=== PATIENT | female | born 1965 | race African-American/Black ===

== ENCOUNTER 2017-01-30 21:39 | Emergency (ER) | payer OTHER ==
[2017-01-30 21:49] VITALS: BP 125/66; PULSE 85; TEMP 98.8; BMI 37.8
[2017-01-30] MEDS ORDERED: traMADol HCL 50 MG TABLET PO ONE (23:45)
--- NOTE | 2017-01-30 23:45 | PDOC ---
History of Present Illness - General History Source: Patient <Bakari Avalos - Last Filed: 01/30/17 23:45> - General History Source: Patient Exam Limitations: No Limitations - History of Present Illness Initial Comments: 01/30/17 23:48 The patient is a 51 year old female with significant past medical history of hypertension and arthritis who presents to the ED with chronic arthritic pain to both knees and back. She denies any trauma to the area or recent falls. The patient denies fever, chills, cough, SOB, chest pain, and palpitations. The patient denies abdominal pain, nausea, vomiting, and diarrhea. The patient denies dysuria, hematuria, urgency, and frequency. Allergies: NKDA Social History: Polysubstance abuse Past Surgical History: None reported PCP: None reported <Charleen Lawson - Last Filed: 01/30/17 23:49> - General Chief Complaint: Pain Stated Complaint: PAIN Time Seen by Provider: 01/30/17 23:45 Past History - Past Medical History HTN: Yes - Immunization History Immunization Up to Date: Yes - Psycho/Social/Smoking Cessation Hx Suicidal Ideation: No Smoking History: Current some day smoker Information on smoking cessation initiated: No Hx Alcohol Use: No Drug/Substance Use Hx: No Substance Use Type: None <Janet Avalosan - Last Filed: 01/30/17 23:45> <Charleen Lawson - Last Filed: 01/30/17 23:49> - Past Medical History Allergies/Adverse Reactions: Allergies Allergy/AdvReac Type Severity Reaction Status Date / Time No Known Allergies Allergy Verified 01/30/17 21:49 Review of Systems - Review of Systems Able to Perform ROS?: Yes Comments:: 01/30/17 23:48 CONSTITUTIONAL: Absent: fever, no chills, no fatigue EYES: Absent: visual changes ENT: Absent: ear pain, no sore throat CARDIOVASCULAR: Absent: chest pain, no palpitations RESPIRATORY: Absent: cough, no SOB GI: Absent: abdominal pain, no nausea, no vomiting, no constipation, no diarrhea GENITOURINARY: Absent: dysuria, no frequency, no hematuria MUSCULOSKELETAL: +bilateral knee pain and back pain SKIN: Absent: rash NEURO: Absent: headache <Charleen Lawson - Last Filed: 01/30/17 23:49> *Physical Exam - Vital Signs Last Vital Signs Temp Pulse Resp BP Pulse Ox 98.8 F 85 20 125/66 99 01/30/17 21:47 01/30/17 21:47 01/30/17 21:47 01/30/17 21:47 01/30/17 21:47 <Bakari Avalos - Last Filed: 01/30/17 23:45> - Vital Signs Last Vital Signs Temp Pulse Resp BP Pulse Ox 98.8 F 85 20 125/66 99 01/30/17 21:47 01/30/17 21:47 01/30/17 21:47 01/30/17 21:47 01/30/17 21:47 - Physical Exam Comments: 01/30/17 23:48 GENERAL: Well-appearing, well-nourished. No apparent distress. HEENT: Normocephalic, atraumatic. PERRL, EOM intact. CARDIOVASCULAR: Normal S1, S2. Regular rate and rhythm. PULMONARY: Clear to auscultation bilaterally. ABDOMEN: Soft, non-distended, non-tender. EXTREMITIES: Normal ROM in all four extremities. No tenderness or deformities. SKIN: Warm, dry. No rash NEUROLOGICAL: Pt is ambulating well. No focal neurological deficits. <Charleen Lawson - Last Filed: 01/30/17 23:49> Medical Decision Making - Medical Decision Making 01/30/17 23:46 Dr. Avalos: The scribe's documentation has been prepared under my direction and personally reviewed by me in its entirery. I confirm that the note above accurately reflects all work, treatment, procedures, and medical decision making performed by me. <Bakari Avalos - Last Filed: 01/30/17 23:45> *DC/Admit/Observation/Transfer - Discharge Dispostion Admit: No <Bakari Avalos - Last Filed: 01/30/17 23:45> - Attestations Scribe Attestion: 01/30/17 23:49 Documentation prepared by Charleen Lawson, acting as medical instrument cable fabricator for Bakari Avalos MD <Charleen Lawson - Last Filed: 01/30/17 23:49> Diagnosis at time of Disposition: Knee pain, chronic Qualifiers: Laterality: bilateral Qualified Code(s): M25.561 - Pain in right knee - Discharge Dispostion Disposition: HOME - Patient Instructions Printed Discharge Instructions: DI for Osteoarthritis
[2017-01-31] MEDS ORDERED: traMADol HCL 50 MG TABLET ONE (00:17)
== END 2017-01-31 00:19 | disposition home or self-care (01) ==
LOC: JER 21:39 → JERFT 21:39 → JER 01-31 00:19
DX: M13.862 Other specified arthritis, left knee (principal); M13.861 Other specified arthritis, right knee; I10 Essential (primary) hypertension; F17.210 Nicotine dependence, cigarettes, uncomplicated
CPT/HCPCS: 99281-25

== ENCOUNTER 2017-08-12 00:14 | Inpatient (IN) | payer OTHER ==
--- NOTE | 2017-08-12 00:41 | HP ---
CIWA Score - CIWA Score Nausea/Vomitin Muscle Tremors: 1-None Visible, but [place] Anxiety: 4-Mod. Anxious/Guarded Agitation: 4-Moderately Restless Paroxysmal Sweats: 1-Minimal Palms Moist Orientation: 0-Oriented Tacttile Disturbances: 3-Moderate Itch/Numb/Burn Auditory Disturbances: 0-None Visual Disturbances: 0-None Headache: 3-Moderate CIWA-Ar Total Score: 19 Admission ROS BHS - HPI Chief Complaint: C/O WITHDRAWAL SX'S FROM ALCOHOLISM. SEEKING DETOX TXMENT. Allergies/Adverse Reactions: Allergies Allergy/AdvReac Type Severity Reaction Status Date / Time No Known Allergies Allergy Verified 08/12/17 00:30 History of Present Illness: 52 Y.O. FEMALE W/ EXTENSIVE HX/O OF ALCOHOLISM ADMITTED TO DETOX. CLIENT DENIES RECENT DETOX TXMENT. SELF REFERRED. REPORTS LONGEST CLEAN TIME 18 YEARS. RELAPSING 2006. Exam Limitations: No Limitations - Ebola screening Have you traveled outside of the country in the last 21 days: No Have you had contact with anyone from an Ebola affected area: No Have you been sick,other than usual withdrawal symptoms: No Do you have a fever: No - Review of Systems Constitutional: Chills, Loss of Appetite, Malaise, Night Sweats, Changes in sleep EENT: reports: Dental Problems (MISSING TEETH) Respiratory: reports: No Symptoms reported Cardiac: reports: No Symptoms Reported GI: reports: Poor Appetite, Poor Fluid Intake Musculoskeletal: reports: No Symptoms Reported Integumentary: reports: No Symptoms Reported Neuro: reports: No Symptoms reported Endocrine: reports: No Symptoms Reported Hematology: reports: No Symptoms Reported Psychiatric: reports: Anxious, Depressed Other Systems: Reviewed and Negative Patient History - Patient Medical History Hx Anemia: No Hx Asthma: Yes (ALBUTEROL INH) Hx Chronic Obstructive Pulmonary Disease (COPD): No Hx Cancer: No Hx Cardiac Disorders: No Hx Congestive Heart Failure: No Hx Hypertension: Yes (NON COMPLIANT WITH NORVASC) Hx Hypercholesterolemia: No Hx Pacemaker: No HX Cerebrovascular Accident: No Hx Seizures: No Hx Dementia: No Hx Diabetes: No Hx Gastrointestinal Disorders: No Hx Liver Disease: No Hx Genitourinary Disorders: No Hx Sexually Transmitted Disorders: No Hx Renal Disease (ESRD): No Hx Thyroid Disease: No Hx Human Immunodeficiency Virus (HIV): No Hx Hepatitis C: No Hx Depression: Yes (ZOLOFT) Hx Suicide Attempt: No Hx Bipolar Disorder: No Hx Schizophrenia: No Other Medical History: DENIES - Patient Surgical History Past Surgical History: Yes Other Surgical History: BUNION REMOVAL BILAT FEET/ ECTOPIC Anesthesia Reaction: No - PPD History Previous Implant?: Yes Documented Results: Negative w/o proof Implanted On Prior [facility] Admission?: No PPD to be Administered?: Yes - Reproductive History Patient is a Female of Child Bearing Age (11 -55 yrs old): Yes Last Menstrual Period: 11/05/14 [place] : [place] [facility] [place] Smoking Cessation Smoking history: Current every day smoker Have you smoked in the past 12 months: No Aproximately how many cigarettes per day: 10 Cigars Per Day: 0 Hx Chewing Tobacco Use: No Initiated information on smoking cessation: Yes 'Breaking Loose' booklet given: 08/12/17 - Substance & Tx. History Hx Alcohol Use: Yes Hx Substance Use: Yes Substance Use Type: Alcohol, Cocaine, Prescribed (METHADONE), Tranquilizers (PCP ) Hx Substance Use Treatment: Yes ([facility]) - Substances Abused BEER/VODKA Route: Oral Frequency: Daily Amount used: 6-22OZ CAN/4 NIPS Age of first use: 10 Date of Last Use: 08/11/17 COCAINE Route: Smoking Frequency: 3-6 times per week Amount used: $40 Age of first use: 20 Date of Last Use: 08/11/17 PCP Route: Smoking Frequency: 1-3 times last 30 days Amount used: 1-2 JOINTS Age of first use: 30 Date of Last Use: 08/11/17 Family Disease History - Family Disease History Family Disease History: CA: Mother (BREAST), Other: Sister (SEIZURES) Admission Physical Exam [facility] - Physical General Appearance: Yes: Disheveled, Mild Distress, Alcohol on Breath, Other ( MALODUROUS) HEENTM: Yes: EOMI, Normocephalic, ALEAH, Pharynx Normal, Other (MISSING TEETH) Respiratory: Yes: Chest Non-Tender, Lungs Clear, Normal Breath Sounds, No Respiratory Distress, No Accessory Muscle Use Neck: Yes: No masses,lesions,Nodules, Supple, Trachea in good position Breast: Yes: Breast Exam Deferred Cardiology: Yes: Regular Rhythm, Regular Rate, S1, S2 Abdominal: Yes: Normal Bowel Sounds, Non Tender, Soft Genitourinary: Yes: Within Normal Limits Back: Yes: Within Normal Limits Musculoskeletal: Yes: Joint Stiffness (OA) Extremities: Yes: Non-Tender, Tremors Neurological: Yes: Fully Oriented, Alert, Motor Strength 5/5 Integumentary: Yes: Dry, Warm, Other (SOILED) Lymphatic: Yes: Within Normal Limits - Diagnostic (1) Osteoarthritis Current Visit: Yes Status: Acute (2) Methadone maintenance therapy patient Current Visit: Yes Status: Chronic (3) Alcohol dependence with uncomplicated withdrawal Current Visit: Yes Status: Chronic (4) Cocaine dependence, uncomplicated Current Visit: Yes Status: Chronic (5) PCP (phencyclidine) abuse Current Visit: Yes Status: Chronic (6) Asthma Current Visit: Yes Status: Chronic Qualifiers: Asthma severity: mild Asthma persistence: intermittent Asthma complication type: uncomplicated Qualified Code(s): J45.20 - Mild intermittent asthma, uncomplicated; J45.20 - Mild intermittent asthma, uncomplicated; J45.20 - Mild intermittent asthma, uncomplicated (7) HTN (hypertension) Current Visit: Yes Status: Chronic Qualifiers: Hypertension type: essential hypertension Qualified Code(s): I10 - Essential (primary) hypertension; I10 - Essential (primary) hypertension; I10 - Essential (primary) hypertension Cleared for Admission S - Detox or Rehab [facility] Level of Care: Medically Managed Detox Regimen/Protocol: Librium [facility] Breath Alcohol Content Breath Alcohol Content: 0 Vital Signs - Vital Signs Vital Signs Refused: No Temperature: 98.5 F Temperature Source: Oral Pulse Rate: 70 Respiratory Rate: 18 Blood Pressure: 132/80 BP Location: Left Arm Blood Pressure Position: Sitting - Height Height: 5 ft 5 in - Weight Weight: 81.647 kg Weight Measurement Method: Standing Scale Body Mass Index (BMI): 29.9 Urine Pregancy Test - Test Device Lot Number: [id number] Expiration Date: 03/04/19 - Control Horizontal Line in Upper Control Window?: Yes - Result Urine Test Results: Negative- NO Line Present Urine Drug Screen - Test Device Lot Number: [id number] Expiration Date: 05/04/19 - Control Is Test Valid: Yes - Results Drug Screen Negative: No Urine Drug Screen Results: ANGELY-Cocaine, PCP-Phencyclidine, MTD-Methadone
[2017-08-12 00:57] VITALS: BMI 29.9
[2017-08-12] MEDS ORDERED: IBUPROFEN 400 MG TABLET (FP) PO PRN (01:09)
[2017-08-12] MEDS ORDERED: MENTHOL/PHENOL 1 EACH UD MM PRN (01:09)
[2017-08-12] MEDS ORDERED: MAGNESIUM HYDROX 2400MG/30ML ORAL SUSPENSION 30 ML CUP PO PRN (01:09)
[2017-08-12] MEDS ORDERED: MAG HYDROX/AL HYDROX/SIMETH 30 ML UNIT-DOSE CUP PO PRN (01:09)
[2017-08-12] MEDS ORDERED: P-EPHED 60MG/TRIPROLIDI 2.5MG TABLET PO PRN (01:09)
[2017-08-12] MEDS ORDERED: MAGNESIUM CITRATE 300 ML BOTTLE PO PRN (01:09)
[2017-08-12] MEDS ORDERED: guaiFENesin/D-METHORPHAN HB 10 ML UNIT-DOSE CUPS PO PRN (01:09)
[2017-08-12] MEDS ORDERED: LOPERAMIDE HCL 2 MG CAPSULE PO PRN (01:09)
[2017-08-12] MEDS ORDERED: chlordiazePOXIDE HCL 25 MG CAPSULE PO PRN (01:09)
[2017-08-12] MEDS ORDERED: hydrOXYzine PAMOATE 50 MG CAPSULE (FP) PO PRN (01:09)
[2017-08-12] MEDS ORDERED: NICOTINE POLACRILEX 2 MG GUM BC PRN (01:09)
[2017-08-12] MEDS ORDERED: diphenhydrAMINE HCL 50 MG CAPSULE PO PRN (01:09)
[2017-08-12] MEDS: chlordiazePOXIDE HCL 25 MG CAPSULE PO SCH ×4 (08:36→22:16)
[2017-08-12] MEDS ORDERED: METHADONE HCL 10 MG TABLET PO SCH (09:30)
[2017-08-12 10:17] LABS: MCHC 31.4 g/dl (32.0-36.0); MEAN CELL VOLUME 98.8 fl (80-96); MEAN PLT VOLUME 9.8 fl (7.5-11.1); PLATELET COUNT 181 K/MM3 (134-434); WHITE BLOOD COUNT 9.3 K/mm3 (4.0-10.0)
[2017-08-12] MEDS: PRENATAL VITAMINS W/ FOLIC ACID TABLET (FP) PO SCH (10:35)
[2017-08-12] MEDS: NICOTINE 14 MG/24 HOURS TOPICAL PATCH TD SCH (10:37)
[2017-08-12] MEDS ORDERED: METHADONE HCL 40 MG DISPERSABLE TABLET ONE (10:38)
[2017-08-12] MEDS ORDERED: METHADONE HCL 10 MG TABLET ONE (10:38)
[2017-08-12] MEDS: METHADONE 80 MG, METHADONE 20 MG PO SCH (10:39)
[2017-08-12 10:41] LABS: ALBUMIN 3.4 g/dl (3.4-5.0); ALK PHOS 115 U/L (45-117); ANION GAP 8 (8-16); BILIRUBIN,TOTAL 0.4 mg/dL (0.2-1.0); CALCIUM 8.5 mg/dL (8.5-10.1); CO2 28 mmol/L (21-32); GLUCOSE,RANDOM 99 mg/dL (74-106); SGOT/AST 21 U/L (15-37); SGPT/ALT 26 U/L (12-78)
--- NOTE | 2017-08-12 11:54 | PN ---
S Progress Note Note: PATIENT IS ADMITTED FOR ALCOHOL DEPENDENCE,ON LIBRIUM REGIMEN,WITHDRAWAL SYMPTOM ,CONTINUE DETOX
--- NOTE | 2017-08-12 15:11 | PN ---
[facility] Progress Note Note: Patient approached at bedside. She was seating on her bed eating cereal. She was very drowsy, sedated and to my line of questioning responded:" Mister I'm very tired. I don't feel like doing that now"
--- NOTE | 2017-08-12 16:28 | EKG ---
Test Reason : Blood Pressure : / mmHG Vent. Rate : 065 BPM Atrial Rate : 065 BPM P-R Int : 160 ms QRS Dur : 100 ms QT Int : 442 ms P-R-T Axes : 043 048 055 degrees QTc Int : 459 ms NORMAL SINUS RHYTHM NORMAL ECG WHEN COMPARED WITH ECG OF 03-APR-2017 08:53, NO SIGNIFICANT CHANGE WAS FOUND Confirmed by DIDIER PIERSON MD ([id number]) on 08/12/2017 4:27:32 PM Referred By: Confirmed By:DIDIER PIERSON MD
[2017-08-12] MEDS: ACETAMINOPHEN 325 MG TABLET (FP) PO PRN ×2 (17:10→22:18)
[2017-08-12] MEDS: THIAMINE HCL 100 MG TABLET (FP) PO SCH (22:16)
[2017-08-13] MEDS ORDERED: METHADONE HCL 40 MG DISPERSABLE TABLET ONE (04:17)
[2017-08-13] MEDS ORDERED: METHADONE HCL 10 MG TABLET ONE (04:18)
[2017-08-13] MEDS: METHADONE 80 MG, METHADONE 20 MG PO SCH (05:45)
[2017-08-13] MEDS: chlordiazePOXIDE HCL 25 MG CAPSULE PO SCH ×4 (05:45→22:17)
[2017-08-13] MEDS ORDERED: PNEUMOC 13-VAL CONJ-DIP CRM/PF 0.5 ML DISP.SYRIN IM ONE (10:00)
[2017-08-13] MEDS ORDERED: FLU VACCINE QUAD 60 MCG/0.5 ML (MDV 17-18) IM ONE (10:00)
[2017-08-13] MEDS: PRENATAL VITAMINS W/ FOLIC ACID TABLET (FP) PO SCH (10:18)
[2017-08-13] MEDS: NICOTINE 14 MG/24 HOURS TOPICAL PATCH TD SCH (10:19)
--- NOTE | 2017-08-13 11:16 | PN ---
S CIWA - CIWA Score Nausea/Vomitin Muscle Tremors: 3 Anxiety: 3 Agitation: 2 Paroxysmal Sweats: 1-Minimal Palms Moist Orientation: 0-Oriented Tacttile Disturbances: 1-Very Mild Itch/Numbness Auditory Disturbances: 1-Very Mild Visual Disturbances: 0-None Headache: 2-Mild CIWA-Ar Total Score: 16 BHS Progress Note (SOAP) Subjective: ALERT,IRRITABLE,ANXIOUS,INTERRUPTED SLEEP,TREMOR Objective: 08/13/17 11:13 Vital Signs Temperature 98.2 F 08/13/17 09:43 Pulse Rate 68 08/13/17 09:43 Respiratory Rate 18 08/13/17 09:43 Blood Pressure 138/91 08/13/17 09:43 O2 Sat by Pulse Oximetry (%) EKG NSR,NORMAL ECG Laboratory Last Values WBC 9.3 K/mm3 (4.0-10.0) 08/12/17 07:40 RBC 3.99 M/mm3 (3.60-5.2) 08/12/17 07:40 Hgb 12.4 GM/dL (10.7-15.3) 08/12/17 07:40 Hct 39.4 % (32.4-45.2) 08/12/17 07:40 MCV 98.8 fl (80-96) H 08/12/17 07:40 MCH 31.0 pg (25.7-33.7) 08/12/17 07:40 MCHC 31.4 g/dl (32.0-36.0) L 08/12/17 07:40 RDW 14.0 % (11.6-15.6) 08/12/17 07:40 Plt Count 181 K/MM3 (134-434) D 08/12/17 07:40 MPV 9.8 fl (7.5-11.1) 08/12/17 07:40 Sodium 144 mmol/L (136-145) 08/12/17 07:40 Potassium 3.8 mmol/L (3.5-5.1) 08/12/17 07:40 Chloride 108 mmol/L (98-107) H 08/12/17 07:40 Carbon Dioxide 28 mmol/L (21-32) 08/12/17 07:40 Anion Gap 8 (8-16) 08/12/17 07:40 BUN 19 mg/dL (7-18) H D 08/12/17 07:40 Creatinine 1.0 mg/dL (0.55-1.02) D 08/12/17 07:40 Creat Clearance w eGFR 58.69 (>60) 08/12/17 07:40 Random Glucose 99 mg/dL (74-106) 08/12/17 07:40 Calcium 8.5 mg/dL (8.5-10.1) 08/12/17 07:40 Total Bilirubin 0.4 mg/dL (0.2-1.0) D 08/12/17 07:40 AST 21 U/L (15-37) D 08/12/17 07:40 ALT 26 U/L (12-78) D 08/12/17 07:40 Alkaline Phosphatase 115 U/L (45-117) D 08/12/17 07:40 Total Protein 7.0 g/dl (6.4-8.2) 08/12/17 07:40 Albumin 3.4 g/dl (3.4-5.0) D 08/12/17 07:40 RPR Titer Nonreactive (NONREACTIVE) 08/12/17 07:40 Assessment: 08/13/17 11:15 WITHDRAWAL SYMPTOM Plan: CONTINUE DETOX,ENCOURAGE ORAL FLUID
[2017-08-13] MEDS ORDERED: PNEUMOCOCCAL 23 VACCINE 0.5 ML VIAL IM ONE (12:00)
--- NOTE | 2017-08-13 13:14 | CONSULT ---
[facility] Psychiatric Consult - Data Date of interview: 08/13/17 Admission source: [facility] Identifying data: First admission to [facility] for this 52 y/o AA female seeking detox treatment on for heroin,cocaine (crack),alcohol and phencyclidine dependence.Patient is single,a mother of three,homeless, unemployed and supported on SSI benefits. Substance Abuse History: Discussed in this encounter.Confirmed by patient. Smoking Cessation. Smoking history: Current every day smoker. Have you smoked in the past 12 months: No. Aproximately how many cigarettes per day: 10. Cigars Per Day: 0. Hx Chewing Tobacco Use: No. Initiated information on smoking cessation: Yes. 'Breaking Loose' booklet given: 08/12/17. - Substance & Tx. History. Hx Alcohol Use: Yes. Hx Substance Use: Yes. Substance Use Type : Alcohol, Cocaine, Prescribed (METHADONE), Tranquilizers (PCP). Hx Substance Use Treatment: Yes ([facility]). - Substances Abused. BEER/VODKA. Route: Oral. Frequency: Daily. Amount used: 6-22OZ CAN/4 NIPS. Age of first use: 10. Date of Last Use: 08/11/17. COCAINE. Route: Smoking. Frequency: 3 -6 times per week. Amount used: $40. Age of first use: 20. Date of Last Use: 08/11/17. PCP. Route: Smoking. Frequency: 1-3 times last 30 days. Amount used: 1-2 JOINTS. Age of first use: 30. Date of Last Use: 08/11/17 Medical History: Bronchial asthma,hypertension,osteoarthritis (knees) and a history of surgeries (ectopic and bilateral excision of bunions). Psychiatric History: No reported history of psychiatric hospitalizations.Patient endorses MDD and Anxiety Disorder.Medications reported as buspar and zoloft (doses not recalled).Ms Chávez gets outpatient psychiatric services at the [facility] in [facility].She repports chronic non- adherence to OPD care.Denies history of suicide attempts. Physical/Sexual Abuse/Trauma History: No reported history of abuse. Additional Comment: Urine Drug Screen Results: ANGELY-Cocaine, PCP-Phencyclidine, MTD-Methadone.Noted. Mental Status Exam - Mental Status Exam Alert and Oriented to: Time, Place, Person Cognitive Function: Good Patient Appearance: Well Groomed Mood: Nervous, Withdrawn, Anxious Affect: Mood Congruent Patient Behavior: Fatigued, Appropriate, Cooperative Speech Pattern: Clear Voice Loudness: Normal Thought Process: Goal Oriented Thought Disorder: Not Present Hallucinations: Denies Suicidal Ideation: Denies Homicidal Ideation: Denies Insight/Judgement: Poor Sleep: Fair Appetite: Good Muscle strength/Tone: Normal Gait/Station: Normal Psychiatric Findings - Problem List ([place] 1, 2,3) (1) Alcohol dependence with uncomplicated withdrawal Current Visit: Yes Status: Acute (2) Cocaine dependence, uncomplicated Current Visit: Yes Status: Acute (3) Phencyclidine dependence Current Visit: Yes Status: Acute (4) Opioid dependence on agonist therapy Current Visit: Yes Status: Acute (5) Nicotine dependence Current Visit: Yes Status: Acute (6) Substance induced mood disorder Current Visit: Yes Status: Acute (7) Osteoarthritis Current Visit: Yes Status: Chronic (8) Asthma Current Visit: Yes Status: Chronic Qualifiers: Asthma severity: mild Asthma persistence: intermittent Asthma complication type: uncomplicated Qualified Code(s): J45.20 - Mild intermittent asthma, uncomplicated; J45.20 - Mild intermittent asthma, uncomplicated; J45.20 - Mild intermittent asthma, uncomplicated (9) HTN (hypertension) Current Visit: Yes Status: Chronic Qualifiers: Hypertension type: essential hypertension Qualified Code(s): I10 - Essential (primary) hypertension; I10 - Essential (primary) hypertension; I10 - Essential (primary) hypertension (10) Knee pain, chronic Current Visit: Yes Status: Chronic Qualifiers: Laterality: bilateral Qualified Code(s): M25.561 - Pain in right knee; M25.561 - Pain in right knee; G89.29 - Other chronic pain; G89.29 - Other chronic pain - Initial Treatment Plan Initial Treatment Plan: Psaychoeducation.Detoxification.Medications :
[2017-08-13] MEDS: busPIRone HCL 5 MG TABLET PO SCH (22:15)
[2017-08-13] MEDS: THIAMINE HCL 100 MG TABLET (FP) PO SCH (22:15)
[2017-08-14] MEDS ORDERED: METHADONE HCL 40 MG DISPERSABLE TABLET ONE (04:47)
[2017-08-14] MEDS ORDERED: METHADONE HCL 10 MG TABLET ONE (04:47)
[2017-08-14] MEDS: chlordiazePOXIDE 5 MG CAPSULE PO SCH ×4 (05:25→22:42)
[2017-08-14] MEDS: METHADONE 80 MG, METHADONE 20 MG PO SCH (07:30)
--- NOTE | 2017-08-14 09:57 | PN ---
[facility] CIWA - CIWA Score Nausea/Vomitin Muscle Tremors: 3 Anxiety: 3 Agitation: 2 Paroxysmal Sweats: 1-Minimal Palms Moist Orientation: 0-Oriented Tacttile Disturbances: 1-Very Mild Itch/Numbness Auditory Disturbances: 1-Very Mild Visual Disturbances: 0-None Headache: 2-Mild CIWA-Ar Total Score: 16 BHS Progress Note (SOAP) Subjective: ALERT,IRRITABLE,ANXIOUS,INTERRUPTED SLEEP,TREMOR Objective: 08/14/17 09:56 Vital Signs Temperature 97.3 F L 08/14/17 06:10 Pulse Rate 65 08/14/17 06:10 Respiratory Rate 18 08/14/17 06:10 Blood Pressure 125/72 08/14/17 06:10 O2 Sat by Pulse Oximetry (%) Assessment: 08/14/17 09:57 WITHDRAWAL SYMPTOM Plan: CONTINUE DETOX
[2017-08-14] MEDS: SERTRALINE HCL 50 MG TABLET (FP) PO SCH (10:18)
[2017-08-14] MEDS: PRENATAL VITAMINS W/ FOLIC ACID TABLET (FP) PO SCH (10:18)
[2017-08-14] MEDS: busPIRone HCL 5 MG TABLET PO SCH ×2 (10:18→22:42)
[2017-08-14] MEDS: NICOTINE 14 MG/24 HOURS TOPICAL PATCH TD SCH (10:19)
[2017-08-14 17:16] LABS: URINE APPEARANCE CLOUDY; URINE BILIRUBIN NEGATIVE (NEGATIVE); URINE BLOOD NEGATIVE (NEGATIVE); URINE COLOR YELLOW; URINE GLUCOSE (UA) NEGATIVE (NEGATIVE); URINE KETONE NEGATIVE (NEGATIVE); URINE NITRITE NEGATIVE (NEGATIVE); URINE PROTEIN NEGATIVE (NEGATIVE); URINE UROBILINOGEN NEGATIVE mg/dL (0.2-1.0)
[2017-08-14 21:23] LABS: URINE LEUK ESTERASE Negative (NEGATIVE)
[2017-08-14] MEDS: THIAMINE HCL 100 MG TABLET (FP) PO SCH (22:42)
[2017-08-15] MEDS ORDERED: METHADONE HCL 10 MG TABLET ONE (05:00)
[2017-08-15] MEDS ORDERED: METHADONE HCL 40 MG DISPERSABLE TABLET ONE (05:00)
[2017-08-15] MEDS: chlordiazePOXIDE HCL 10 MG CAPSULE PO SCH ×4 (06:09→22:19)
[2017-08-15] MEDS: METHADONE 80 MG, METHADONE 20 MG PO SCH (07:37)
[2017-08-15] MEDS: PRENATAL VITAMINS W/ FOLIC ACID TABLET (FP) PO SCH (10:07)
[2017-08-15] MEDS: busPIRone HCL 5 MG TABLET PO SCH ×2 (10:07→22:19)
[2017-08-15] MEDS: SERTRALINE HCL 50 MG TABLET (FP) PO SCH (10:07)
[2017-08-15] MEDS: NICOTINE 14 MG/24 HOURS TOPICAL PATCH TD SCH (10:08)
--- NOTE | 2017-08-15 10:41 | PN ---
S Progress Note (SOAP) Subjective: alert,irritable,anxious,interrupted sleep Objective: 08/15/17 10:39 Vital Signs Temperature 98.4 F 08/14/17 21:37 Pulse Rate 69 08/14/17 21:37 Respiratory Rate 18 08/15/17 06:18 Blood Pressure 147/93 08/14/17 21:37 O2 Sat by Pulse Oximetry (%) Assessment: 08/15/17 10:40 withdrawal symptom Plan: continue detox,discharge in am
[2017-08-15] MEDS: THIAMINE HCL 100 MG TABLET (FP) PO SCH (22:19)
[2017-08-16] MEDS ORDERED: METHADONE HCL 40 MG DISPERSABLE TABLET ONE (04:55)
[2017-08-16] MEDS ORDERED: METHADONE HCL 10 MG TABLET ONE (04:55)
[2017-08-16] MEDS: METHADONE 80 MG, METHADONE 20 MG PO SCH (05:29)
[2017-08-16 07:03] VITALS: BP 144/93; PULSE 63; TEMP 98.2
--- NOTE | 2017-08-16 08:19 | DS ---
[facility] Detox Discharge Summary Admission Date: 08/12/17 Discharge Date: 08/16/17 - History Present History: Alcohol Dependence, Cocaine Dependence, MMTP Additional Comments: follow up with after care program as arrangement Pertinent Past History: asthma hypertension osteoarthritis - Physical Exam Results Vital Signs: Vital Signs Temperature 98.2 F 08/16/17 06:00 Pulse Rate 63 08/16/17 06:00 Respiratory Rate 18 08/16/17 06:00 Blood Pressure 144/93 08/16/17 06:00 O2 Sat by Pulse Oximetry (%) Pertinent Admission Physical Exam Findings: withdrawal finding - Treatment Hospital Course: Detox Protocol Followed, Detoxed Safely, Responded well, Discharged Condition Good Patient has Accepted a Rehab Referral to: declined - Medication Discharge Medications: Ambulatory Orders Buspirone HCl [Buspar -] 5 mg PO BID 08/12/17 Buspirone HCl [Buspar -] 5 mg PO BID #30 tablet 08/13/17 Sertraline HCl [Zoloft -] 50 mg PO DAILY #30 tablet 08/13/17 - Diagnosis (1) Opioid dependence on agonist therapy Current Visit: Yes Status: Acute (2) Alcohol dependence with uncomplicated withdrawal Current Visit: Yes Status: Acute (3) Cocaine dependence, uncomplicated Current Visit: Yes Status: Acute (4) Nicotine dependence Current Visit: Yes Status: Acute (5) Asthma Current Visit: Yes Status: Chronic Qualifiers: Asthma severity: mild Asthma persistence: intermittent Asthma complication type: uncomplicated Qualified Code(s): J45.20 - Mild intermittent asthma, uncomplicated; J45.20 - Mild intermittent asthma, uncomplicated; J45.20 - Mild intermittent asthma, uncomplicated (6) HTN (hypertension) Current Visit: Yes Status: Chronic Qualifiers: Hypertension type: essential hypertension Qualified Code(s): I10 - Essential (primary) hypertension; I10 - Essential (primary) hypertension; I10 - Essential (primary) hypertension (7) Osteoarthritis Current Visit: Yes Status: Chronic - AMA Did Patient Leave Against Medical Advice: No
== END 2017-08-16 09:15 | disposition home or self-care (01) | DRG 773 ==
LOC: YASAS 00:14 → Y6N 01:01
PROVIDERS: ADMIT Internal Medicine; ATTEND Internal Medicine
PROC: HZ2ZZZZ Detoxification Services for Substance Abuse Treatment (ICD-10-PCS; principal; 2017-08-12)
DX: F11.23 Opioid dependence with withdrawal (principal); F10.230 Alcohol dependence with withdrawal, uncomplicated; F14.20 Cocaine dependence, uncomplicated; F16.10 Hallucinogen abuse, uncomplicated; F17.210 Nicotine dependence, cigarettes, uncomplicated; F19.24 Other psychoactive substance dependence with psychoactive substance-induced mood disorder; J45.20 Mild intermittent asthma, uncomplicated; I10 Essential (primary) hypertension; M17.0 Bilateral primary osteoarthritis of knee; M25.561 Pain in right knee; G89.29 Other chronic pain; Z91.14 Patient's other noncompliance with medication regimen
CPT/HCPCS: 36415; 80053; 81003; 85027; 86593; 86803; 90688; 90732; 93005; 93010; G0008; G0009

== ENCOUNTER → 2019-07-04 | Outpatient (CLI) | payer OTHER | LOC: YHH 15:08 ==

== ENCOUNTER 2022-10-11 10:43 | Inpatient (IN) | payer OTHER ==
[2022-10-11 12:35] VITALS: BMI 38.9
[2022-10-11] MEDS ORDERED: BISMUTH SUBSALICYLATE 524 MG/30 ML PO PRN (13:14)
[2022-10-11] MEDS ORDERED: MAGNESIUM HYDROX 2400MG/30ML ORAL SUSPENSION 30 ML CUP PO PRN (13:14)
[2022-10-11] MEDS ORDERED: LOPERAMIDE HCL 2 MG CAPSULE PO PRN (13:14)
[2022-10-11] MEDS ORDERED: POLYETHYLENE GLYCOL (HEALTHYLAX) 3350 17 GM PACKET PO PRN (13:14)
[2022-10-11] MEDS ORDERED: DICYCLOMINE HCL 10 MG CAPSULE PO PRN (13:14)
[2022-10-11] MEDS ORDERED: ONDANSETRON *ODT* 4 MG TABLET SL PRN (13:14)
[2022-10-11] MEDS ORDERED: NICOTINE POLACRILEX 2 MG GUM BUC PRN (13:14)
[2022-10-11] MEDS ORDERED: MAG HYDROX/AL HYDROX/SIMETH 30 ML UNIT-DOSE CUP PO PRN (13:14)
[2022-10-11] MEDS ORDERED: IBUPROFEN 600 MG TABLET (FP) PO PRN (13:14)
[2022-10-11] MEDS ORDERED: ACETAMINOPHEN 325 MG TABLET (FP) PO PRN (13:14)
[2022-10-11] MEDS ORDERED: BENZOCAINE/MENTHOL (CHLORASEPTIC ) LOZENGE MM PRN (13:14)
[2022-10-11] MEDS ORDERED: hydrOXYzine PAMOATE 25 MG CAPSULE (FP) PO PRN (13:14)
[2022-10-11] MEDS ORDERED: NALOXONE HCL (KLOXXADO) 8 MG SPRAY NS PRN (13:14)
[2022-10-11] MEDS ORDERED: ALBUTEROL SO4 HFA INHALER IH PRN (13:23)
[2022-10-11] MEDS ORDERED: NICOTINE 7 MG/24 HOURS TOPICAL PATCH TD PRN (13:45)
[2022-10-11] MEDS ORDERED: LORazepam 1 MG TABLET PO PRN (14:42)
[2022-10-11] MEDS: ACETAMINOPHEN 325 MG TABLET (FP) PO PRN (17:42)
[2022-10-11] MEDS: METHOCARBAMOL 500 MG TABLET PO PRN (17:43)
[2022-10-11] MEDS: LORazepam 2 MG TABLET PO SCH ×2 (17:44→23:01)
[2022-10-11] MEDS: MELATONIN 5 MG TABLETS PO SCH (22:29)
[2022-10-11] MEDS: THIAMINE HCL 100 MG TABLET (FP) PO SCH (22:29)
[2022-10-12] MEDS: LORazepam 2 MG TABLET PO SCH ×4 (05:52→22:33)
[2022-10-12] MEDS ORDERED: POTASSIUM CHLORIDE ORAL LIQUID 20 MEQ/15 ML PO ONE ×2 (10:20→11:32)
[2022-10-12 10:27] LABS: HEMATOCRIT 37.8 % (32.4-45.2); HEMOGLOBIN 12.1 GM/dL (10.7-15.3); MCH 30.9 pg (25.7-33.7); MCHC 32.1 g/dl (32.0-36.0); MEAN CELL VOLUME 96.2 fl (80-96); MEAN PLT VOLUME 8.8 fl (7.5-11.1); PLATELET COUNT 219 10^3/uL (134-434); RBC 3.93 M/mm3 (3.60-5.2); RDW 13.1 % (11.6-15.6); WHITE BLOOD COUNT 6.8 K/mm3 (4.0-10.0)
[2022-10-12] MEDS: PRENATAL VITAMINS W/ FOLIC ACID TABLET (FP) PO SCH (10:28)
[2022-10-12 11:12] LABS: CALCIUM 8.9 mg/dL (8.5-10.1)
[2022-10-12 11:13] LABS: BLOOD UREA NITROGEN 9.3 mg/dL (7-18)
[2022-10-12 11:16] LABS: CREATININE 0.8 mg/dL (0.55-1.3)
[2022-10-12 11:17] LABS: BILIRUBIN,TOTAL 0.5 mg/dL (0.2-1); TOT PROT 6.2 g/dl (6.4-8.2)
[2022-10-12] MEDS ORDERED: methaDONE HCL 10 MG TABLET PO SCH (12:00)
[2022-10-12] MEDS: NICOTINE 10 MG CARTRIDGE (INHALER) IH PRN (12:20)
[2022-10-12] MEDS: METHOCARBAMOL 500 MG TABLET PO PRN (17:32)
[2022-10-12] MEDS: IBUPROFEN 400 MG TABLET (FP) PO PRN (17:32)
[2022-10-12] MEDS: THIAMINE HCL 100 MG TABLET (FP) PO SCH (22:32)
[2022-10-12] MEDS: MELATONIN 5 MG TABLETS PO SCH (22:32)
[2022-10-13] MEDS: LORazepam 1 MG TABLET PO SCH ×4 (05:57→22:23)
[2022-10-13] MEDS: METHOCARBAMOL 500 MG TABLET PO PRN ×2 (10:52→17:35)
[2022-10-13] MEDS: PRENATAL VITAMINS W/ FOLIC ACID TABLET (FP) PO SCH (10:52)
[2022-10-13] MEDS ORDERED: cloNIDine HCL 0.1 MG TABLET PO ONE (18:45)
[2022-10-13] MEDS: MELATONIN 5 MG TABLETS PO SCH (22:23)
[2022-10-13] MEDS: THIAMINE HCL 100 MG TABLET (FP) PO SCH (22:23)
[2022-10-14] MEDS ORDERED: LORazepam 0.5 MG TABLET PO PRN
[2022-10-14] MEDS: LORazepam 0.5 MG TABLET PO SCH ×4 (05:43→22:27)
[2022-10-14] MEDS: NICOTINE 10 MG CARTRIDGE (INHALER) IH PRN ×2 (09:40→23:19)
[2022-10-14] MEDS: PRENATAL VITAMINS W/ FOLIC ACID TABLET (FP) PO SCH (10:25)
[2022-10-14] MEDS: METHOCARBAMOL 500 MG TABLET PO PRN ×2 (10:25→17:32)
[2022-10-14] MEDS: ACETAMINOPHEN 325 MG TABLET (FP) PO PRN (10:26)
[2022-10-14] MEDS: THIAMINE HCL 100 MG TABLET (FP) PO SCH (22:27)
[2022-10-14] MEDS: MELATONIN 5 MG TABLETS PO SCH (22:27)
[2022-10-15] MEDS ORDERED: LORazepam 0.5 MG TABLET PO ONE (05:00)
[2022-10-15] MEDS: IBUPROFEN 400 MG TABLET (FP) PO PRN (06:05)
[2022-10-15 09:50] VITALS: BP 160/92; PULSE 65; RESP 16; TEMP 98
[2022-10-15] MEDS: PRENATAL VITAMINS W/ FOLIC ACID TABLET (FP) PO SCH (10:27)
== END 2022-10-15 10:36 | disposition home or self-care (01) | DRG 897 ==
LOC: YASAS 10:43 → Y3N 13:26
PROVIDERS: ADMIT Allergy & Immunology; ATTEND Surgery
PROC: HZ2ZZZZ Detoxification Services for Substance Abuse Treatment (ICD-10-PCS; principal; 2022-10-11)
DX: F13.230 Sedative, hypnotic or anxiolytic dependence with withdrawal, uncomplicated (principal); F14.20 Cocaine dependence, uncomplicated; F11.20 Opioid dependence, uncomplicated; F19.280 Other psychoactive substance dependence with psychoactive substance-induced anxiety disorder; F17.210 Nicotine dependence, cigarettes, uncomplicated; F19.24 Other psychoactive substance dependence with psychoactive substance-induced mood disorder; I10 Essential (primary) hypertension; J45.20 Mild intermittent asthma, uncomplicated; R79.89 Other specified abnormal findings of blood chemistry; Z96.653 Presence of artificial knee joint, bilateral; Z99.89 Dependence on other enabling machines and devices; Z56.0 Unemployment, unspecified; Z59.00 Homelessness unspecified
CPT/HCPCS: 36415; 80053; 81025; 84132; 85027; 86780; 87811; C9803-CS; U0003; U0005

== ENCOUNTER 2024-05-21 11:35 | Inpatient (IN) | payer OTHER ==
[2024-05-21 12:14] VITALS: BMI 35.2
[2024-05-21] MEDS ORDERED: BISMUTH SUBSALICYLATE 524 MG/30 ML PO PRN (12:39)
[2024-05-21] MEDS ORDERED: guaiFENesin 600 MG TABLET.ER (FP) PO PRN (12:39)
[2024-05-21] MEDS ORDERED: MAGNESIUM HYDROX 2400MG/30ML ORAL SUSPENSION 30 ML CUP PO PRN (12:39)
[2024-05-21] MEDS ORDERED: POLYETHYLENE GLYCOL (HEALTHYLAX) 3350 17 GM PACKET PO PRN (12:39)
[2024-05-21] MEDS ORDERED: IBUPROFEN 600 MG TABLET (FP) PO PRN (12:39)
[2024-05-21] MEDS ORDERED: LOPERAMIDE HCL 2 MG CAPSULE PO PRN (12:39)
[2024-05-21] MEDS ORDERED: NICOTINE POLACRILEX 2 MG LOZENGE BC PRN (12:39)
[2024-05-21] MEDS ORDERED: P-EPHED 60MG/TRIPROLIDI 2.5MG TABLET PO PRN (12:39)
[2024-05-21] MEDS ORDERED: BENZOCAINE/MENTHOL (CHLORASEPTIC ) LOZENGE MM PRN (12:39)
[2024-05-21] MEDS ORDERED: NICOTINE POLACRILEX 2 MG GUM BUC PRN (12:39)
[2024-05-21] MEDS ORDERED: ACETAMINOPHEN 325 MG TABLET (FP) PO PRN (12:39)
[2024-05-21] MEDS ORDERED: NALOXONE HCL 0.4 MG/ML VIAL IM PRN (12:39)
[2024-05-21] MEDS ORDERED: BENZONATATE 200 MG CAPSULE PO PRN (12:39)
[2024-05-21] MEDS ORDERED: NALOXONE (NARCAN) HCL 4 MG/0.1 ML SPRAY NS PRN (12:39)
[2024-05-21] MEDS ORDERED: DICYCLOMINE HCL 10 MG CAPSULE PO PRN (12:39)
[2024-05-21] MEDS ORDERED: IBUPROFEN 400 MG TABLET (FP) PO PRN (12:39)
[2024-05-21] MEDS ORDERED: chlordiazePOXIDE HCL 25 MG CAPSULE PO PRN (12:41)
[2024-05-21] MEDS ORDERED: ALBUTEROL SO4 HFA INHALER IH PRN (12:41)
[2024-05-21] MEDS ORDERED: chlordiazePOXIDE HCL 25 MG CAPSULE PO SCH (17:00)
[2024-05-21] MEDS: METHOCARBAMOL 500 MG TABLET PO PRN (17:18)
[2024-05-21] MEDS: MAG HYDROX/AL HYDROX/SIMETH 30 ML UNIT-DOSE CUP PO PRN (19:49)
[2024-05-21] MEDS: THIAMINE 100 MG TABLET PO SCH (22:22)
[2024-05-21] MEDS: levETIRAcetam 500 MG TABLET (FP) PO SCH (22:22)
[2024-05-21] MEDS: MELATONIN 5 MG TABLETS PO SCH (22:23)
[2024-05-21] MEDS: diazePAM 5 MG TABLET PO SCH (22:23)
[2024-05-22] MEDS: diazePAM 5 MG TABLET PO PRN (09:18)
[2024-05-22] MEDS: PRENATAL VITAMINS W/ FOLIC ACID TABLET (FP) PO SCH (09:59)
[2024-05-22] MEDS ORDERED: methaDONE HCL 10 MG TABLET PO ONE (10:03)
[2024-05-22 11:46] LABS: ALBUMIN 3.4 g/dl (3.4-5.0); CALCIUM 9.1 mg/dL (8.5-10.1)
[2024-05-22 11:47] LABS: HEMATOCRIT 39.6 % (32.4-45.2); HEMOGLOBIN 12.7 GM/dL (10.7-15.3); MEAN CELL VOLUME 97.1 fl (80-96); MEAN PLT VOLUME 8.9 fl (7.5-11.1); PLATELET COUNT 238 10^3/uL (134-434); RBC 4.08 M/mm3 (3.60-5.2); RDW 13.8 % (11.6-15.6); WHITE BLOOD COUNT 7.6 K/mm3 (4.0-10.0)
[2024-05-22 11:49] LABS: CREATININE 0.9 mg/dL (0.55-1.3)
[2024-05-22 11:50] LABS: TOT PROT 6.8 g/dl (6.4-8.2)
[2024-05-22 11:52] LABS: BILIRUBIN,TOTAL 0.5 mg/dL (0.2-1)
[2024-05-23] MEDS ORDERED: chlordiazePOXIDE HCL 25 MG CAPSULE PO SCH (05:00)
[2024-05-23] MEDS: diazePAM 5 MG TABLET PO SCH (05:35)
[2024-05-23] MEDS ORDERED: methaDONE HCL 10 MG TABLET PO SCH (06:00)
[2024-05-23] MEDS: ONDANSETRON *ODT* 4 MG TABLET SL PRN (13:46)
[2024-05-24] MEDS ORDERED: chlordiazePOXIDE HCL 10 MG CAPSULE PO PRN
[2024-05-24] MEDS ORDERED: chlordiazePOXIDE HCL 10 MG CAPSULE PO SCH (05:00)
[2024-05-24] MEDS: diazePAM 5 MG TABLET PO SCH (05:34)
[2024-05-24] MEDS: diazePAM 5 MG TABLET PO ONE (23:51)
[2024-05-25] MEDS ORDERED: chlordiazePOXIDE HCL 10 MG CAPSULE PO SCH (05:00)
[2024-05-25] MEDS: diazePAM 5 MG TABLET PO ONE ×2 (05:55→15:49)
[2024-05-26] MEDS ORDERED: chlordiazePOXIDE HCL 10 MG CAPSULE PO ONE (05:00)
[2024-05-26] MEDS ORDERED: levETIRAcetam 250 MG TABLET PO ONE (09:41)
[2024-05-26 13:25] VITALS: BP 120/70; PULSE 55; RESP 16; TEMP 97.1
== END 2024-05-26 12:55 | disposition home or self-care (01) | DRG 897 ==
LOC: YASAS 11:35 → Y6N 14:15
PROVIDERS: ADMIT Allergy & Immunology; ATTEND Surgery
PROC: HZ2ZZZZ Detoxification Services for Substance Abuse Treatment (ICD-10-PCS; principal; 2024-05-21)
DX: F13.230 Sedative, hypnotic or anxiolytic dependence with withdrawal, uncomplicated (principal); F11.20 Opioid dependence, uncomplicated; F14.20 Cocaine dependence, uncomplicated; F16.20 Hallucinogen dependence, uncomplicated; F19.282 Other psychoactive substance dependence with psychoactive substance-induced sleep disorder; F17.210 Nicotine dependence, cigarettes, uncomplicated; F19.24 Other psychoactive substance dependence with psychoactive substance-induced mood disorder; J45.20 Mild intermittent asthma, uncomplicated; M17.0 Bilateral primary osteoarthritis of knee; Z99.89 Dependence on other enabling machines and devices; Z62.810 Personal history of physical and sexual abuse in childhood; Z91.410 Personal history of adult physical and sexual abuse; Z63.0 Problems in relationship with spouse or partner
CPT/HCPCS: 36415; 80053; 80305; 85027; 86780; 93005; 93010; Q0162

== ENCOUNTER 2024-08-11 12:51 | Inpatient (IN) | payer OTHER ==
[2024-08-11 13:37] VITALS: BMI 33.9
[2024-08-11] MEDS ORDERED: ONDANSETRON *ODT* 4 MG TABLET SL PRN (15:43)
[2024-08-11] MEDS ORDERED: BENZOCAINE/MENTHOL (CHLORASEPTIC ) LOZENGE MM PRN (15:43)
[2024-08-11] MEDS ORDERED: LOPERAMIDE HCL 2 MG CAPSULE PO PRN (15:43)
[2024-08-11] MEDS ORDERED: DICYCLOMINE HCL 10 MG CAPSULE PO PRN (15:43)
[2024-08-11] MEDS ORDERED: POLYETHYLENE GLYCOL (HEALTHYLAX) 3350 17 GM PACKET PO PRN (15:43)
[2024-08-11] MEDS ORDERED: BISMUTH SUBSALICYLATE 524 MG/30 ML PO PRN (15:43)
[2024-08-11] MEDS ORDERED: MAG HYDROX/AL HYDROX/SIMETH 30 ML UNIT-DOSE CUP PO PRN (15:43)
[2024-08-11] MEDS ORDERED: MAGNESIUM HYDROX 2400MG/30ML ORAL SUSPENSION 30 ML CUP PO PRN (15:43)
[2024-08-11] MEDS ORDERED: IBUPROFEN 400 MG TABLET (FP) PO PRN (15:43)
[2024-08-11] MEDS ORDERED: NALOXONE (NARCAN) HCL 4 MG/0.1 ML SPRAY NS PRN (15:43)
[2024-08-11] MEDS ORDERED: NALOXONE (NYS OPIOID OVERDOSE PROGRAM) 4 MG/0.1 ML SPRAY NS PRN (15:43)
[2024-08-11] MEDS ORDERED: BENZONATATE 200 MG CAPSULE PO PRN (15:43)
[2024-08-11] MEDS ORDERED: guaiFENesin 600 MG TABLET.ER (FP) PO PRN (15:43)
[2024-08-11] MEDS ORDERED: IBUPROFEN 600 MG TABLET (FP) PO PRN (15:43)
[2024-08-11] MEDS ORDERED: ACETAMINOPHEN 325 MG TABLET (FP) PO PRN (15:43)
[2024-08-11] MEDS: NICOTINE 14 MG/24 HOURS TOPICAL PATCH TD SCH (17:43)
[2024-08-11] MEDS: PRENATAL VITAMINS W/ FOLIC ACID TABLET (FP) PO SCH (17:43)
[2024-08-11] MEDS: MELATONIN 5 MG TABLETS PO SCH (22:21)
[2024-08-11] MEDS: diazePAM 5 MG TABLET PO PRN (22:21)
[2024-08-11] MEDS: THIAMINE 100 MG TABLET PO SCH (22:21)
[2024-08-11] MEDS: levETIRAcetam 500 MG TABLET (FP) PO SCH (22:22)
[2024-08-11] MEDS: diazePAM 5 MG TABLET PO SCH (22:22)
[2024-08-12] MEDS: METHOCARBAMOL 500 MG TABLET PO PRN (06:25)
[2024-08-12] MEDS ORDERED: methaDONE HCL 10 MG TABLET PO ONE (08:32)
[2024-08-12] MEDS: methaDONE HCL 10 MG TABLET PO SCH (09:43)
[2024-08-12] MEDS: hydrOXYzine PAMOATE 25 MG CAPSULE (FP) PO PRN (10:10)
[2024-08-12 14:34] LABS: HEMATOCRIT 42.8 % (32.4-45.2); HEMOGLOBIN 13.9 GM/dL (10.7-15.3); MCH 30.7 pg (25.7-33.7); MCHC 32.4 g/dl (32.0-36.0); MEAN CELL VOLUME 94.7 fl (80-96); PLATELET COUNT 221 10^3/uL (134-434); RBC 4.52 M/mm3 (3.60-5.2); RDW 13.3 % (11.6-15.6); WHITE BLOOD COUNT 9.9 K/mm3 (4.0-10.0)
[2024-08-12 14:40] LABS: CHLORIDE 100 mmol/L (98-107); POTASSIUM 3.4 mmol/L (3.5-5.1); SODIUM 139 mmol/L (136-145)
[2024-08-12 14:51] LABS: ALBUMIN 3.9 g/dl (3.4-5.0); ANION GAP 6 mmol/L (4-13); CALCIUM 9.3 mg/dL (8.5-10.1); CO2 32 mmol/L (21-32); GLUCOSE,RANDOM 111 mg/dL (74-106)
[2024-08-12 14:52] LABS: BLOOD UREA NITROGEN 12.5 mg/dL (7-18)
[2024-08-12 14:55] LABS: CREATININE 1.1 mg/dL (0.55-1.3); SGOT/AST 57 U/L (15-37); SGPT/ALT 56 U/L (13-61)
[2024-08-12 14:56] LABS: BILIRUBIN,TOTAL 1.2 mg/dL (0.2-1); TOT PROT 7.2 g/dl (6.4-8.2)
[2024-08-12 14:57] LABS: ALK PHOS 78 U/L (45-117)
[2024-08-13] MEDS: diazePAM 5 MG TABLET PO SCH (05:53)
[2024-08-13] MEDS ORDERED: methaDONE HCL 10 MG TABLET PO SCH (06:00)
[2024-08-13] MEDS: ALBUTEROL SO4 HFA INHALER IH PRN (10:08)
[2024-08-14] MEDS: diazePAM 5 MG TABLET PO SCH (06:05)
[2024-08-15] MEDS: diazePAM 5 MG TABLET PO ONE (05:40)
[2024-08-15 06:53] VITALS: BP 153/83; PULSE 60; RESP 16; TEMP 97.7
== END 2024-08-15 11:11 | disposition home or self-care (01) | DRG 897 ==
LOC: YASAS 12:51 → Y6N 17:59
PROVIDERS: ADMIT Allergy & Immunology; ATTEND Surgery
PROC: HZ2ZZZZ Detoxification Services for Substance Abuse Treatment (ICD-10-PCS; principal; 2024-08-11)
DX: F10.230 Alcohol dependence with withdrawal, uncomplicated (principal); F13.20 Sedative, hypnotic or anxiolytic dependence, uncomplicated; F11.20 Opioid dependence, uncomplicated; F19.280 Other psychoactive substance dependence with psychoactive substance-induced anxiety disorder; F17.210 Nicotine dependence, cigarettes, uncomplicated; F25.9 Schizoaffective disorder, unspecified; G40.909 Epilepsy, unspecified, not intractable, without status epilepticus; J45.20 Mild intermittent asthma, uncomplicated; R26.89 Other abnormalities of gait and mobility; Z96.653 Presence of artificial knee joint, bilateral; Z99.89 Dependence on other enabling machines and devices; Z62.810 Personal history of physical and sexual abuse in childhood; Z91.410 Personal history of adult physical and sexual abuse
CPT/HCPCS: 36415; 80053; 80305; 80307; 84132; 85027; 86780; 93005; 93010

== ENCOUNTER → 2025-02-05 | Day surgery (SDC) | payer OTHER ==
[2025-02-03 13:55] VITALS: BMI 35.2
[2025-02-05 11:19] VITALS: TEMP 98
[2025-02-05 12:47] VITALS: BP 162/97; PULSE 54; RESP 18
== END | disposition home or self-care (01) ==
LOC: JASU-ENDO 07:10
PROVIDERS: ATTEND Internal Medicine Gastroenterology
PROC: 0DJD8ZZ Inspection of Lower Intestinal Tract, Via Natural or Artificial Opening Endoscopic (ICD-10-PCS; principal; 2025-02-05 08:30)
DX: Z12.11 Encounter for screening for malignant neoplasm of colon (principal); K64.8 Other hemorrhoids; R19.5 Other fecal abnormalities
CPT/HCPCS: 93005; 93010